=== PATIENT | male | born 1965 | race Caucasian/White ===

== ENCOUNTER → 2016-12-08 | Outpatient (CLI) | payer BC ==
[2016-12-08 11:12] LABS: ALT 40 U/L (21-72); AST 18 U/L (17-59); Cholesterol 129 mg/dL (<200); HDL Cholesterol 42 mg/dL (40-60)
== END | disposition home or self-care (01) ==
LOC: LABWHC1 10:31
PROVIDERS: ATTEND Internal Medicine Cardiovascular Disease
DX: E78.2 Mixed hyperlipidemia (principal)
CPT/HCPCS: 36415; 80061; 84450; 84460

== ENCOUNTER → 2017-05-03 | Outpatient (CLI) | payer BC ==
[2017-05-03 17:49] LABS: HCT 44.6 % (39.0-53.0); HGB 14.2 gm/dL (13.0-17.5); MCH 27.8 pg (25.0-35.0); MCHC 31.9 g/dL (31.0-37.0); MCV 87.1 fL (80.0-100.0); Mean Platelet Volume 8.2; Platelet Count 182 k/uL (150-450); RBC 5.12 m/uL (4.30-5.90); RDW 15.3 % (11.5-15.5); WBC 10.3 k/uL (3.8-10.6)
[2017-05-03 18:05] LABS: Anion Gap 9 mmol/L; Blood Urea Nitrogen 19 mg/dL (9-20); Calcium 9.6 mg/dL (8.4-10.2); Carbon Dioxide 31 mmol/L (22-30); Chloride 103 mmol/L (98-107); Glucose 94 mg/dL (74-99); Potassium 4.3 mmol/L (3.5-5.1); Sodium 143 mmol/L (137-145)
== END | disposition home or self-care (01) ==
LOC: LABWHC1 16:35
PROVIDERS: ATTEND Internal Medicine Cardiovascular Disease
DX: R60.0 Localized edema (principal)
CPT/HCPCS: 36415; 80048; 83880; 84443; 85027

== ENCOUNTER → 2019-03-29 | Outpatient (CLI) | payer BC ==
[2019-03-29 17:25] LABS: Chol/HDL Ratio 2.41; LDL Cholesterol,Calculated 56.6 mg/dL (0.0-131.0); VLDL Calculation 15.4 mg/dL (5.00-40.00)
== END | disposition home or self-care (01) ==
LOC: LABWHC1 09:21
PROVIDERS: ATTEND Internal Medicine Cardiovascular Disease
DX: E78.2 Mixed hyperlipidemia (principal)
CPT/HCPCS: 36415; 80061; 84450; 84460

== ENCOUNTER → 2020-01-28 | Outpatient (CLI) | payer BC ==
[2020-01-28 22:41] LABS: Chol/HDL Ratio 3.05; LDL Cholesterol,Calculated 72.8 mg/dL (0.0-131.0); VLDL Calculation 17.2 mg/dL (5.00-40.00)
== END | disposition home or self-care (01) ==
LOC: LABWHC1 08:19
PROVIDERS: ATTEND Internal Medicine Cardiovascular Disease
DX: E78.2 Mixed hyperlipidemia (principal)
CPT/HCPCS: 36415; 80061; 84450; 84460

== ENCOUNTER → 2021-01-15 | Outpatient (CLI) | payer BC ==
[2021-01-15 12:57] LABS: Chol/HDL Ratio 2.81 Ratio; HDL Cholesterol 46.7 mg/dL (40.00-60.00); LDL Cholesterol,Calculated 71.5 mg/dL (0.0-131.0); Triglycerides 64.2 mg/dL (0.00-149.00); VLDL Calculation 12.84 mg/dL (5.00-40.00)
== END | disposition home or self-care (01) ==
LOC: LABWHC1 08:29
PROVIDERS: ATTEND Internal Medicine Cardiovascular Disease
DX: E78.2 Mixed hyperlipidemia (principal)
CPT/HCPCS: 36415; 80061; 84450; 84460

== ENCOUNTER → 2021-11-02 | Outpatient (CLI) | payer BC ==
[2021-11-02 19:44] LABS: HCT 43.1 % (39.6-50.0); HGB 14.2 g/dL (13.0-17.0); MCHC 32.9 g/dL (32.0-37.0); Mean Platelet Volume 11.4 fL (9.5-12.2); NRBC Per 100 WBC 0 /100 WBCS (0.0-0.0); Platelet Count 185 X 10*3/uL (140-440); RDW 13.6 % (11.5-14.5); WBC 8.24 X 10*3/uL (4.50-10.00)
[2021-11-02 23:12] LABS: African American GFR (CKD) 108.3 (60.0-200.0); Albumin 4.7 g/dL (3.8-4.9); Albumin/Globulin Ratio 2.57 (1.60-3.17); Anion Gap 13.5 mmol/L (10.00-18.00); BUN/Creat Ratio 17.94 Ratio (12.00-20.00); Blood Urea Nitrogen 16.2 mg/dL (9.0-27.0); Calcium 9.7 mg/dL (8.7-10.3); Carbon Dioxide 23.6 mmol/L (20.0-27.5); Follicle Stimulating Hormone 25.1 mIU/mL; Globulin 1.8 g/dL (1.6-3.3); Luteinizing Hormone 20.6 mIU/mL; Non-African American GFR(CKD) 93.4 (60.0-200.0); Potassium 3.9 mmol/L (3.5-5.5); Prolactin 4.7 ng/mL (2.100-17.700); Prostate Specific Antigen 0.1 ng/mL (0.00-3.50); Total Bilirubin 1.2 mg/dL (0.30-1.20); Total Protein 6.5 g/dL (6.2-8.2)
[2021-11-03 06:04] LABS: Testosterone 30.7 ng/mL (86.98-780.10)
== END | disposition home or self-care (01) ==
LOC: LABWHC1 12:17
PROVIDERS: ATTEND Internal Medicine Endocrinology, Diabetes & Metabolism
DX: E29.1 Testicular hypofunction (principal)
CPT/HCPCS: 36415; 80053; 82024; 82533; 83001; 83002; 84146; 84153; 84403; 85027

== ENCOUNTER → 2022-01-05 | Outpatient (CLI) | payer BC ==
[2022-01-05 11:13] LABS: ALT 19 U/L (10-49); AST 17 U/L (14-35); Chol/HDL Ratio 3.05 Ratio; LDL Cholesterol,Calculated 65.6 mg/dL (0.0-131.0); VLDL Calculation 12.36 mg/dL (5.00-40.00)
== END | disposition home or self-care (01) ==
LOC: LABWHC1 08:05
PROVIDERS: ATTEND Internal Medicine Cardiovascular Disease
DX: E78.2 Mixed hyperlipidemia (principal)
CPT/HCPCS: 36415; 80061; 84450; 84460

== ENCOUNTER → 2022-01-11 | Outpatient (CLI) | payer BC ==
[2022-01-11 11:12] LABS: HCT 49.4 % (39.6-50.0); HGB 16.5 g/dL (13.0-17.0); MCH 30.1 pg (27.0-32.0); MCHC 33.4 g/dL (32.0-37.0); MCV 90.1 fL (80.0-97.0); Mean Platelet Volume 10.6 fL (9.5-12.2); NRBC Per 100 WBC 0 /100 WBCS (0.0-0.0); Platelet Count 195 X 10*3/uL (140-440); RBC 5.48 X 10*6/uL (4.40-5.60); RDW 13.5 % (11.5-14.5); WBC 7.81 X 10*3/uL (4.50-10.00)
[2022-01-11 11:14] LABS: African American GFR (CKD) 109.6 (60.0-200.0); Albumin 4.5 g/dL (3.8-4.9); Albumin/Globulin Ratio 2.45 (1.60-3.17); Anion Gap 10.9 mmol/L (10.00-18.00); BUN/Creat Ratio 18.03 Ratio (12.00-20.00); Blood Urea Nitrogen 15.9 mg/dL (9.0-27.0); Calcium 9.3 mg/dL (8.7-10.3); Carbon Dioxide 26.2 mmol/L (20.0-27.5); Follicle Stimulating Hormone 5.4 mIU/mL; Globulin 1.8 g/dL (1.6-3.3); Luteinizing Hormone 9.6 mIU/mL; Non-African American GFR(CKD) 94.6 (60.0-200.0); Potassium 4.9 mmol/L (3.5-5.5); Prolactin 12.9 ng/mL (2.100-17.700); Total Bilirubin 1.2 mg/dL (0.30-1.20); Total Protein 6.4 g/dL (6.2-8.2)
== END | disposition home or self-care (01) ==
LOC: LABWHC1 07:40
PROVIDERS: ATTEND Internal Medicine Endocrinology, Diabetes & Metabolism
DX: E29.1 Testicular hypofunction (principal)
CPT/HCPCS: 36415; 80053; 82024; 82533; 83001; 83002; 84146; 84153; 84403; 85027

== ENCOUNTER → 2022-05-01 | Outpatient (CLI) | payer BC ==
[2022-05-01 14:58] LABS: HCT 53.7 % (39.6-50.0); HGB 17.6 g/dL (13.0-17.0); MCHC 32.8 g/dL (32.0-37.0); MCV 88.6 fL (80.0-97.0); Mean Platelet Volume 10.7 fL (9.5-12.2); NRBC Per 100 WBC 0 /100 WBCS (0.0-0.0); Platelet Count 178 X 10*3/uL (140-440); Prostate Specific Antigen 1.5 ng/mL (0.00-3.50); RBC 6.06 X 10*6/uL (4.40-5.60); RDW 14.6 % (11.5-14.5)
== END ==
LOC: LABWHC1 08:23
PROVIDERS: ATTEND Internal Medicine Endocrinology, Diabetes & Metabolism
DX: E29.1 Testicular hypofunction (principal)
CPT/HCPCS: 36415; 84153; 84403; 85027

== ENCOUNTER → 2022-09-21 | Outpatient (CLI) | payer BC ==
[2022-09-21 20:36] LABS: HCT 52.9 % (39.6-50.0); HGB 17.8 d/dL (12.0-15.0); MCH 30.6 pg (27.0-32.0); MCHC 33.6 d/dL (32.0-37.0); MCV 90.9 FL (80.0-97.0); NRBC Per 100 WBC 0 X 10*3/uL (0.00-0.01); Platelet Count 162 X 10*3/uL (140-440); RBC 5.82 X 10*6/uL (4.40-5.60); RDW 13.8 % (11.5-14.5); WBC 7.44 X 10*3/uL (4.50-10.00)
== END | disposition home or self-care (01) ==
LOC: LABWHC1 07:58
PROVIDERS: ATTEND Internal Medicine Endocrinology, Diabetes & Metabolism
DX: E29.1 Testicular hypofunction (principal)
CPT/HCPCS: 36415; 84153; 84403; 85027

== ENCOUNTER → 2022-11-10 | Outpatient (CLI) | payer BC ==
[2022-11-10 15:45] LABS: Chol/HDL Ratio 4.24 Ratio; LDL Cholesterol,Calculated 94.3 mg/dL (0.0-131.0); VLDL Calculation 18.82 mg/dL (5.00-40.00)
[2022-11-10 15:48] LABS: ALT 28 U/L (10-49); AST 24 U/L (14-35); Albumin 4.5 d/dL (3.8-4.9); Albumin/Globulin Ratio 2.25 Ratio (1.60-3.17); Alkaline Phosphatase 89 U/L (41-126); BUN/Creat Ratio 17.12 Ratio (12.00-20.00); Blood Urea Nitrogen 13.7 mg/dL (9.0-27.0); Calcium 9.5 mg/dL (8.7-10.3); Carbon Dioxide 23.3 mmol/L (21.6-31.8); Chloride 106 mmol/L (96-109); Glucose 87 mg/dL (70-110); Potassium 4.4 mmol/L (3.5-5.5); Sodium 141 mmol/L (135-145); Total Bilirubin 1.7 mg/dL (0.3-1.2); Total Protein 6.5 d/dL (6.2-8.2)
== END | disposition home or self-care (01) ==
LOC: LABWHC1 10:05
PROVIDERS: ATTEND Internal Medicine Cardiovascular Disease
DX: E78.2 Mixed hyperlipidemia (principal); E55.9 Vitamin D deficiency, unspecified; R73.09 Other abnormal glucose
CPT/HCPCS: 36415; 80053; 80061; 82306; 83036

== ENCOUNTER → 2023-01-18 | Outpatient (CLI) | payer BC ==
[2023-01-18 16:44] LABS: Prostate Specific Antigen 0.83 ng/mL (0.000-3.500)
[2023-01-18 17:13] LABS: HCT 53.6 % (39.6-50.0); HGB 18.4 d/dL (13.0-17.0); MCH 30.7 pg (27.0-32.0); MCHC 34.3 d/dL (32.0-37.0); MCV 89.3 FL (80.0-97.0); Mean Platelet Volume 10.7 FL (9.5-12.2); NRBC Per 100 WBC 0 X 10*3/uL (0.00-0.01); Platelet Count 178 X 10*3/uL (140-440); RDW 13.4 % (11.5-14.5); WBC 8.54 X 10*3/uL (4.50-10.00)
== END | disposition home or self-care (01) ==
LOC: LABWHC1 11:58
PROVIDERS: ATTEND Internal Medicine Endocrinology, Diabetes & Metabolism
DX: E29.1 Testicular hypofunction (principal)
CPT/HCPCS: 36415; 84153; 84403; 85027

== ENCOUNTER 2023-02-27 14:28 | Inpatient (IN) | payer BC ==
[2023-02-27] MEDS ORDERED: HEPARIN SODIUM 1,000 UN/ML (10ML VL) IV ONE (14:41)
[2023-02-27] MEDS ORDERED: HEPARIN SODIUM 1,000 UN/ML (10ML VL) IV PRN (14:41)
[2023-02-27] MEDS ORDERED: HYDROmorphone 0.5 MG/0.5 ML SYRINGE IVP PRN (15:01)
[2023-02-27] MEDS ORDERED: NALOXONE 0.4 MG/ML 1 ML VIAL IV PRN (15:04)
[2023-02-27] MEDS ORDERED: ONDANSETRON 4 MG/2 ML VIAL IVP PRN (15:04)
--- NOTE | 2023-02-27 15:04 | ED ---
Lower Extremity Injury HPI - General Chief Complaint: Extremity Injury, Lower Stated Complaint: L Leg Blood Clot, sent by Dr. Sotomayor(cardio) Time Seen by Provider: 02/27/23 14:40 Source: patient, RN notes reviewed Mode of arrival: ambulatory Limitations: no limitations - History of Present Illness Initial Comments: 57-year-old male presents emergency Department with chief complaint of left leg DVT. Patient states she's been having pain of his left leg he went for ultrasound yesterday and outside facility and found to have to DVTs noted. Patient states been having extreme pain. He denies any chest pain or shortness breath he does have significant cardiac history for LA with 2 stent placements. Patient states he contacted his soaking room operator Dr. Zaragoza advised him come emergency department to be admitted for heparin, Coumadin. He was prescribed Eliquis yesterday in which he took initial dose of Eliquis but states his prescription was over $1000 and could not afford the cost medication. He has no history of blood clots. He is a daily smoker. - Related Data Allergies Allergy/AdvReac Type Severity Reaction Status Date / Time No Known Allergies Allergy Verified 02/27/23 14:36 Review of Systems ROS Statement: Those systems with pertinent positive or pertinent negative responses have been documented in the HPI. ROS Other: All systems not noted in ROS Statement are negative. Past Medical History Past Medical History: Myocardial Infarction (LA) Past Surgical History: Heart Catheterization With Stent Additional Past Surgical History / Comment(s): two stents, Past Psychological History: No Psychological Hx Reported Smoking Status: Current every day smoker Past Alcohol Use History: None Reported Past Drug Use History: None Reported General Exam Limitations: no limitations General appearance: alert, in no apparent distress Head exam: Present: atraumatic, normocephalic, normal inspection Neck exam: Present: normal inspection. Absent: tenderness, meningismus, lymphadenopathy Respiratory exam: Present: normal lung sounds bilaterally. Absent: respiratory distress, wheezes, rales, rhonchi, stridor Cardiovascular Exam: Present: regular rate, normal rhythm, normal heart sounds. Absent: systolic murmur, diastolic murmur, rubs, gallop, clicks Extremities exam: Present: calf tenderness, other (Left leg tenderness with palpation, mild swelling) Course Vital Signs 02/27/23 14:30 Temperature 98.2 F Pulse Rate 78 Respiratory 18 Rate Blood Pressure 169/67 O2 Sat by Pulse 98 Oximetry Medical Decision Making - Medical Decision Making Was pt. sent in by a medical professional or institution (DARLENE Warner, RATING OFFICER, urgent care, hospital, or retirement...) When possible be specific @ -Bottom Liner Did you speak to anyone other than the patient for history (EMS, parent, family, police, friend...)? What history was obtained from this source @ -No Did you review nursing and triage notes (agree or disagree)? Why? @ -I reviewed and agree with nursing and triage notes Were old charts reviewed (outside hosp., previous admission, EMS record, old EKG, old radiological studies, urgent care reports/EKG's, retirement records)? Report findings @ -Reviewed outpatient ultrasound report Differential Diagnosis (chest pain, altered mental status, abdominal pain women, abdominal pain men, vaginal bleeding, weakness, fever, dyspnea, syncope, headache, dizziness, GI bleed, back pain, seizure, CVA, palpatations, mental health, musculoskeletal)? @ -[DVT, superficial thrombophlebitis EKG interpreted by me (3pts min.). @ -None X-rays interpreted by me (1pt min.). @ -None done CT interpreted by me (1pt min.). @ -None done U/S interpreted by me (1pt. min.). @ -None done What testing was considered but not performed or refused? (CT, X-rays, U/S, labs)? Why? @ -None What meds were considered but not given or refused? Why? @ -None Did you discuss the management of the patient with other professionals (professionals i.e. DARLENE Warner, RATING OFFICER, lab, RT, psych nurse, social psychologist, diagnostic sales specialist, teacher, military police officer, case assembler)? Give summary @ - sheet for admission secondary to left leg DVT Was smoking cessation discussed for >3mins.? @ -No Was critical care preformed (if so, how long)? @ -No Were there social determinants of health that impacted care today? How? (Homelessness, low income, unemployed, alcoholism, drug addiction, transportation, low edu. Level, literacy, decrease access to med. care, custodial, rehab)? @ -No Was there de-escalation of care discussed even if they declined (Discuss DNR or withdrawal of care, Hospice)? DNR status @ -No What co-morbidities impacted this encounter? (DM, HTN, Smoking, COPD, CAD, Cancer, CVA, ARF, Chemo, Hep., AIDS, mental health diagnosis, sleep apnea, mor bid obesity)? @ -CAD Was patient admitted / discharged? Hospital course, mention meds given and route, prescriptions, significant lab abnormalities, going to OR and other pertinent info. @ -Admitted patient was started on high-dose heparin patient has left leg DVT. Obtain outside records, case discussed with Dr. hill for admission. Undiagnosed new problem with uncertain prognosis? @ -No Drug Therapy requiring intensive monitoring for toxicity (Heparin, Nitro, Insulin, Cardizem)? @ -No Were any procedures done? @ -No Diagnosis/symptom? @ -DVT left leg Acute, or Chronic, or Acute on Chronic? @ -Acute Uncomplicated (without systemic symptoms) or Complicated (systemic symptoms)? @ -Uncomplicated Side effects of treatment? @ -No Exacerbation, Progression, or Severe Exacerbation? @ -No Poses a threat to life or bodily function? How? (Chest pain, USA, LA, pneumonia, PE, COPD, DKA, ARF, appy, cholecystitis, CVA, Diverticulitis, Homicidal, Suicidal, threat to staff... and all critical care pts) @ -No Disposition Clinical Impression: Left leg DVT Disposition: ADMITTED IP TO THIS HOSP Condition: Fair Referrals: [facility] [Primary Care Provider] - 1-2 days Time of Disposition: 15:04
[2023-02-27 15:33] LABS: Basophils % (A) 1 %; Eosinophils # (A) 0.3 k/uL (0-0.7); Eosinophils % (A) 3 %; HCT 49.3 % (39.0-53.0); Lymphocytes # (A) 2.2 k/uL (1.0-4.8); Lymphocytes % (A) 23 %; MCH 30.9 pg (25.0-35.0); MCHC 34.4 g/dL (31.0-37.0); MCV 89.6 fL (80.0-100.0); Monocytes # (A) 0.7 k/uL (0-1.0); Monocytes % (A) 8 %; Neutrophils # (A) 6.1 k/uL (1.3-7.7); Neutrophils % (A) 64 %; Platelet Count 134 k/uL (150-450); RDW 12.9 % (11.5-15.5); WBC 9.5 k/uL (3.8-10.6)
[2023-02-27] MEDS: HEPARIN SOD,PORK IN 0.45% NACL 25,000 UNIT in 0.45% NACL 1 250ML.BAG IV SCH (15:35)
[2023-02-27 15:46] LABS: ALT 24 U/L (4-49); AST 19 U/L (17-59); African American GFR (CKD) >90 (>60 ml/min/1.73 sqM); Albumin 3.9 g/dL (3.5-5.0); Alkaline Phosphatase 71 U/L (38-126); Anion Gap 7 mmol/L; Blood Urea Nitrogen 20 mg/dL (9-20); Calcium 9.3 mg/dL (8.4-10.2); Carbon Dioxide 26 mmol/L (22-30); Chloride 109 mmol/L (98-107); Glucose 96 mg/dL (74-99); Non-African American GFR(CKD) >90 (>60 ml/min/1.73 sqM); Potassium 3.8 mmol/L (3.5-5.1); Sodium 142 mmol/L (137-145); Total Bilirubin 1.4 mg/dL (0.2-1.3); Total Protein 6.2 g/dL (6.3-8.2)
[2023-02-27 15:51] LABS: Partial Thromboplastin Time 27.7 sec (22.0-30.0); Prothrombin Time 11.3 sec (10.0-12.5)
--- NOTE | 2023-02-27 16:33 | US ---
EXAMINATION TYPE: US venous doppler duplex LE DATE OF EXAM: 02/27/2023 4:12 PM COMPARISON: NONE CLINICAL INDICATION: Male, 57 years old with history of leg pain; Positive DVT Left leg Bear 26 m ile- given script for 2 days worth of thinners SIDE PERFORMED: Bilateral TECHNIQUE: The lower extremity deep venous system is examined utilizing real time linear array sonog armando with graded compression, doppler sonography and color-flow sonography. VESSELS IMAGED: Common Femoral Vein WNL Deep Femoral Vein WNL Greater Saphenous Vein *WNL PROXIMALLY Femoral Vein WNL Popliteal Vein within normal limits on the right, there is echogenic material with loss of color flow and noncompressibility of the left popliteal vein, consistent with DVT. Small Saphenous Vein *WNL Proximal Calf Veins WNL (* superficial vessels) Right Leg: Negative for DVT Left Leg: Positive for DVT IMPRESSION: * Positive for DVT in the left popliteal vein. * No evidence of DVT in the right lower extremity.
[2023-02-27] MEDS ORDERED: WARFARIN 5 MG TAB PO ONE (18:00)
[2023-02-27] MEDS: HYDROcodone/APAP 5-325MG 1 EACH TAB PO PRN (20:05)
--- NOTE | 2023-02-27 21:11 | P.HPIM ---
History of Present Illness This is a pleasant 57 years old male with past medical history of coronary artery disease status post stent placement, he is every day smoker. Patient started having left leg pain and swelling and warmth about 2 days ago, he wants to see his PCP who sendthim to [facility], ultrasound found to close in his left leg, he was prescribed Eliquis and sent home however his co- pay for Eliquis was $1000 which she can't afford so he wants to his practice professional Dr. Sotomayor who referred him to this facility emergency room Patient was sent from his practice professional office Dr. Sotomayor for his deep venous thrombosis treatment, patient cannot afford Eliquis. Patient was denying any chest pain or dyspnea. Vitals are stable and patient is saturating 98% on room air. Labs reviewed showing unremarkable CBC, BMP, liver enzymes. Patient was started on heparin drip and emergency room We'll add warfarin Review of Systems Review of systems CONSTITUTIONAL: No fever, no malaise, no fatigue. HEENT: No recent visual problems or hearing problems. Denied any sore throat. CARDIOVASCULAR: No orthopnea, PND, no palpitations, no syncope. PULMONARY: No shortness of breath, no cough, no hemoptysis. GASTROINTESTINAL: No diarrhea, no nausea, no vomiting, no abdominal pain. Normoactive bowel sounds. NEUROLOGICAL: No headaches, no weakness, no numbness. HEMATOLOGICAL: Denies any bleeding or petechiae. GENITOURINARY: Denies any burning micturition, frequency, or urgency. MUSCULOSKELETAL/RHEUMATOLOGICAL: Denies any joint pain, swelling, or any muscle pain. ENDOCRINE: Denies any polyuria or polydipsia. Past Medical History Past Medical History: Myocardial Infarction (NM) Past Surgical History: Heart Catheterization With Stent Additional Past Surgical History / Comment(s): two stents, Past Psychological History: No Psychological Hx Reported Smoking Status: Current every day smoker Past Alcohol Use History: None Reported Past Drug Use History: None Reported Medications and Allergies Home Medications Medication Instructions Recorded Confirmed Type Aspirin [Duplin Aspirin EC] 81 mg PO DAILY 02/27/23 02/27/23 History Atorvastatin [Lipitor] 40 mg PO HS 02/27/23 02/27/23 History Allergies Allergy/AdvReac Type Severity Reaction Status Date / Time No Known Allergies Allergy Verified 02/27/23 15:57 Physical Exam Vitals: Vital Signs Temp Pulse Resp BP Pulse Ox 02/27/23 14:30 98.2 F 78 18 169/67 98 Intake and Output 02/27/23 02/27/23 02/27/23 06:59 14:59 22:59 Other: Weight 99.337 kg GENERAL: The patient is alert and oriented x3, not in any acute distress. Well developed, well nourished. HEENT: Pupils are round and equally reacting to light. EOMI. No scleral icterus. No conjunctival pallor. Normocephalic, atraumatic. No pharyngeal erythema. No thyromegaly. CARDIOVASCULAR: S1 and S2 present. No murmurs, rubs, or gallops. PULMONARY: Chest is clear to auscultation, no wheezing , no crackles. ABDOMEN: Soft, nontender, nondistended, normoactive bowel sounds. No palpable organomegaly. MUSCULOSKELETAL: No joint swelling or deformity. -EXTREMITIES: No cyanosis, clubbing, or pedal edema. Left leg swelling and red and tender NEUROLOGICAL: Gross neurological examination did not reveal any focal deficits. SKIN: No rashes. no petechiae. Results CBC & Chem 7: 02/27/23 15:07 02/27/23 15:07 Labs: Abnormal Lab Results - Last 24 Hours (Table) 02/27/23 Range/Units 15:07 Plt Count 134 L (150-450) k/uL Assessment and Plan Assessment: Acute DVT of thrombosis requiring anticoagulation History of coronary artery disease Nicotine dependence Hypertension, new onset Plan: Continue with heparin drip Continue with Coumadin pharmacy to dose Monitor INR and hemoglobin Start [facility] for blood pressure control Labs and medication were reviewed.. Continue same treatment. Continue with symptomatic treatment. Resume home medication. Monitor labs and vitals. DVT and GI prophylaxis. Further recommendations as per clinical course of the patient DVT prophylaxis: heparin GI Prophylaxis: Pepcid
[2023-02-27] MEDS: amLODIPine 5 MG TAB PO SCH (21:41)
[2023-02-28] MEDS: HEPARIN SOD,PORK IN 0.45% NACL 25,000 UNIT in 0.45% NACL 1 250ML.BAG IV SCH ×2 (05:55→20:59)
[2023-02-28] MEDS: ACETAMINOPHEN TAB 325 MG TAB PO PRN ×2 (06:04→12:52)
[2023-02-28 07:21] LABS: INR 1.1 (<1.2); Prothrombin Time 11.9 sec (10.0-12.5)
[2023-02-28 08:36] LABS: Partial Thromboplastin Time 52.5 sec (22.0-30.0)
[2023-02-28] MEDS: ASPIRIN 81 MG PO SCH (08:49)
[2023-02-28] MEDS: amLODIPine 5 MG TAB PO SCH (08:49)
[2023-02-28 15:16] LABS: Basophils # (A) 0.06 X 10*3/uL (0.00-0.10); Basophils % (A) 0.6 %; Eosinophils # (A) 0.33 X 10*3/uL (0.04-0.35); Eosinophils % (A) 3.2 %; HCT 50.2 % (39.6-50.0); Lymphocytes # (A) 2.27 X 10*3/uL (0.90-5.00); MCH 30.4 pg (27.0-32.0); MCHC 33.9 g/dL (32.0-37.0); MCV 89.6 FL (80.0-97.0); Mean Platelet Volume 10.9 FL (9.5-12.2); Monocytes # (A) 0.91 X 10*3/uL (0.20-1.00); Monocytes % (A) 8.8 %; NRBC Per 100 WBC 0 X 10*3/uL (0.00-0.01); Platelet Count 148 X 10*3/uL (140-440); RDW 13.2 % (11.5-14.5); WBC 10.31 X 10*3/uL (4.50-10.00)
[2023-02-28] MEDS: HYDROcodone/APAP 5-325MG 1 EACH TAB PO PRN (17:21)
[2023-02-28] MEDS ORDERED: WARFARIN 5 MG TAB PO ONE (18:00)
--- NOTE | 2023-03-01 06:23 | P.PN ---
Subjective This is a pleasant 57 years old male with past medical history of coronary artery disease status post stent placement, he is every day smoker. Patient started having left leg pain and swelling and warmth about 2 days ago, he wants to see his PCP who sendthim to [facility], ultrasound found to close in his left leg, he was prescribed Eliquis and sent home however his co- pay for Eliquis was $1000 which she can't afford so he wants to his biztalk administrator Dr. Sotomayor who referred him to this facility emergency room Patient was sent from his biztalk administrator office Dr. Sotomayor for his deep venous thrombosis treatment, patient cannot afford Eliquis. Patient was denying any chest pain or dyspnea. Vitals are stable and patient is saturating 98% on room air. Labs reviewed showing unremarkable CBC, BMP, liver enzymes. Patient was started on heparin drip and emergency room We'll add warfarin 02/28/2023 patient with no chest pain or dyspnea, his left leg pain is improving slowly and gradually. No new complaints. No evidence of bleeding. Patient remains on heparin drip bridging while receiving Coumadin pending INR to be therapeutic PT/OT recommended home Objective - Vital Signs Vital signs: Vital Signs Temp 98.1 F 02/28/23 13:20 Pulse 75 02/28/23 13:20 Resp 16 02/28/23 13:20 BP 130/69 02/28/23 13:20 Pulse Ox 97 02/28/23 13:20 FiO2 Intake & Output 02/27/23 02/28/23 02/28/23 18:59 06:59 18:59 Intake Total 250 200 Output Total 700 Balance -450 200 Weight 99.337 kg 99.337 kg Intake: Intake, IV Titration 250 Amount Heparin Sod,Pork in 0.45% 250 NaCl 25,000 unit In 0.45 % NaCl 1 250ml.bag @ 18 UNITS/KG/HR 17.881 mls/hr IV .[id number] [facility] Rx#: [id number] Oral 200 Output: Urine 700 Other: Voiding Method Toilet Urinal - Exam GENERAL: The patient is alert and oriented x3, not in any acute distress. Well developed, well nourished. HEENT: Pupils are round and equally reacting to light. EOMI. No scleral icterus. No conjunctival pallor. Normocephalic, atraumatic. No pharyngeal erythema. No thyromegaly. CARDIOVASCULAR: S1 and S2 present. No murmurs, rubs, or gallops. PULMONARY: Chest is clear to auscultation, no wheezing , no crackles. ABDOMEN: Soft, nontender, nondistended, normoactive bowel sounds. No palpable organomegaly. MUSCULOSKELETAL: No joint swelling or deformity. -EXTREMITIES: No cyanosis, clubbing, or pedal edema. Improving left leg swelling and tenderness and erythema NEUROLOGICAL: Gross neurological examination did not reveal any focal deficits. SKIN: No rashes. no petechiae. - Labs CBC & Chem 7: 02/28/23 06:16 02/27/23 15:07 Labs: Abnormal Lab Results - Last 24 Hours (Table) 02/27/23 02/27/23 02/27/23 Range/Units 15:07 15:07 20:38 Plt Count 134 L (150-450) k/uL APTT 67.3 H (22.0-30.0) sec Chloride 109 H (98-107) mmol/L Total Bilirubin 1.4 H (0.2-1.3) mg/dL Total Protein 6.2 L (6.3-8.2) g/dL 02/27/23 02/28/23 Range/Units 22:45 06:16 Plt Count (150-450) k/uL APTT 64.9 H 52.5 H (22.0-30.0) sec Chloride (98-107) mmol/L Total Bilirubin (0.2-1.3) mg/dL Total Protein (6.3-8.2) g/dL Assessment and Plan Assessment: Acute DVT of thrombosis requiring anticoagulation History of coronary artery disease Nicotine dependence Hypertension, new onset Plan: Continue with heparin drip Continue with Coumadin pharmacy to dose Monitor INR and hemoglobin Start [facility] for blood pressure control Labs and medication were reviewed.. Continue same treatment. Continue with symptomatic treatment. Resume home medication. Monitor labs and vitals. DVT and GI prophylaxis. Further recommendations as per clinical course of the patient DVT prophylaxis: heparin GI Prophylaxis: Pepcid
[2023-03-01 07:55] LABS: INR 1.1 (<1.2); Partial Thromboplastin Time 59.2 sec (22.0-30.0); Prothrombin Time 11.7 sec (10.0-12.5)
[2023-03-01] MEDS: ASPIRIN 81 MG PO SCH (09:29)
[2023-03-01] MEDS: amLODIPine 5 MG TAB PO SCH (09:29)
[2023-03-01] MEDS: HEPARIN SOD,PORK IN 0.45% NACL 25,000 UNIT in 0.45% NACL 1 250ML.BAG IV SCH (11:04)
--- NOTE | 2023-03-01 11:21 | P.EN ---
Patient has mobility limitation that significantly impairs the ability to participate an MRADLS in the home. Patient is able to safely use a walker and functional mobility deficit can be resolved by the use of a walker. Patient was diagnosed with a left popliteal vein deep vein thrombosis.
[2023-03-01 13:15] LABS: HCT 50.8 % (39.6-50.0); HGB 17.2 g/dL (13.0-17.0); MCH 30.2 pg (27.0-32.0); MCHC 33.9 g/dL (32.0-37.0); MCV 89.1 FL (80.0-97.0); Mean Platelet Volume 10.4 FL (9.5-12.2); NRBC Per 100 WBC 0 X 10*3/uL (0.00-0.01); Platelet Count 149 X 10*3/uL (140-440); RDW 13.1 % (11.5-14.5)
[2023-03-01] MEDS ORDERED: WARFARIN 10 MG TAB PO ONE (18:00)
[2023-03-01] MEDS: ATORVASTATIN 40 MG TAB PO SCH (19:48)
[2023-03-01] MEDS: NICOTINE 7MG/24HR PATCH TRANSDERM SCH (19:48)
--- NOTE | 2023-03-01 22:30 | P.PN ---
Subjective This is a pleasant 57 years old male with past medical history of coronary artery disease status post stent placement, he is every day smoker. Patient started having left leg pain and swelling and warmth about 2 days ago, he wants to see his PCP who sendthim to [facility], ultrasound found to close in his left leg, he was prescribed Eliquis and sent home however his co- pay for Eliquis was $1000 which she can't afford so he wants to his operations assistant Dr. Sotomayor who referred him to this facility emergency room Patient was sent from his operations assistant office Dr. Sotomayor for his deep venous thrombosis treatment, patient cannot afford Eliquis. Patient was denying any chest pain or dyspnea. Vitals are stable and patient is saturating 98% on room air. Labs reviewed showing unremarkable CBC, BMP, liver enzymes. Patient was started on heparin drip and emergency room We'll add warfarin 02/28/2023 patient with no chest pain or dyspnea, his left leg pain is improving slowly and gradually. No new complaints. No evidence of bleeding. Patient remains on heparin drip bridging while receiving Coumadin pending INR to be therapeutic PT/OT recommended home 03/01/2023 Patient diagnosed with left leg DVT Started on Coumadin, INR 1.1, continue with the impression pain is better in the left leg but not completely resolved, on [place]. Swelling and redness improved Objective - Vital Signs Vital signs: Vital Signs Temp 98.3 F 03/01/23 07:15 Pulse 79 03/01/23 07:15 Resp 18 03/01/23 07:15 BP 137/69 03/01/23 07:15 Pulse Ox 95 03/01/23 07:15 FiO2 Intake & Output 02/28/23 03/01/23 03/01/23 18:59 06:59 18:59 Intake Total 860 850 420 Output Total 900 400 Balance 860 -50 20 Intake: Intake, IV Titration 250 Amount Heparin Sod,Pork in 0.45% 250 NaCl 25,000 unit In 0.45 % NaCl 1 250ml.bag @ 18 UNITS/KG/HR 17.881 mls/hr IV .[id number] [facility] Rx#: [id number] Oral 860 600 420 Output: Urine 900 400 Other: Voiding Method Toilet Urinal # Voids 2 - Exam GENERAL: The patient is alert and oriented x3, not in any acute distress. Well developed, well nourished. HEENT: Pupils are round and equally reacting to light. EOMI. No scleral icterus. No conjunctival pallor. Normocephalic, atraumatic. No pharyngeal erythema. No thyromegaly. CARDIOVASCULAR: S1 and S2 present. No murmurs, rubs, or gallops. PULMONARY: Chest is clear to auscultation, no wheezing , no crackles. ABDOMEN: Soft, nontender, nondistended, normoactive bowel sounds. No palpable organomegaly. MUSCULOSKELETAL: No joint swelling or deformity. -EXTREMITIES: No cyanosis, clubbing, or pedal edema. Improving left leg swelling and tenderness and erythema NEUROLOGICAL: Gross neurological examination did not reveal any focal deficits. SKIN: No rashes. no petechiae. - Labs CBC & Chem 7: 03/01/23 06:28 02/27/23 15:07 Labs: Abnormal Lab Results - Last 24 Hours (Table) 02/28/23 03/01/23 Range/Units 06:16 06:18 WBC 10.31 H (4.50-10.00) X 10*3/uL Hct 50.2 H (39.6-50.0) % APTT 59.2 H (22.0-30.0) sec Assessment and Plan Assessment: Acute DVT of thrombosis requiring anticoagulation History of coronary artery disease Nicotine dependence Hypertension, new onset Plan: Continue with heparin drip Continue with Coumadin pharmacy to dose Monitor INR and hemoglobin Start [facility] for blood pressure control Labs and medication were reviewed.. Continue same treatment. Continue with symptomatic treatment. Resume home medication. Monitor labs and vitals. DVT and GI prophylaxis. Further recommendations as per clinical course of the patient DVT prophylaxis: heparin GI Prophylaxis: Pepcid
[2023-03-02] MEDS: HEPARIN SOD,PORK IN 0.45% NACL 25,000 UNIT in 0.45% NACL 1 250ML.BAG IV SCH (00:43)
[2023-03-02] MEDS: ACETAMINOPHEN TAB 325 MG TAB PO PRN ×2 (02:28→19:45)
[2023-03-02 07:26] LABS: INR 1.3 (<1.2); Prothrombin Time 13.6 sec (10.0-12.5)
[2023-03-02] MEDS: NICOTINE 7MG/24HR PATCH TRANSDERM SCH (08:41)
[2023-03-02] MEDS: amLODIPine 5 MG TAB PO SCH (08:41)
[2023-03-02] MEDS: ASPIRIN 81 MG PO SCH (08:41)
[2023-03-02] MEDS ORDERED: ENOXAPARIN 100 MG/ML SYRINGE SQ SCH (15:00)
[2023-03-02] MEDS ORDERED: WARFARIN 10 MG TAB PO ONE (18:00)
[2023-03-02] MEDS: ATORVASTATIN 40 MG TAB PO SCH (21:28)
--- NOTE | 2023-03-02 23:17 | P.PN ---
Subjective This is a pleasant 57 years old male with past medical history of coronary artery disease status post stent placement, he is every day smoker. Patient started having left leg pain and swelling and warmth about 2 days ago, he wants to see his PCP who sendthim to [facility], ultrasound found to close in his left leg, he was prescribed Eliquis and sent home however his co- pay for Eliquis was $1000 which she can't afford so he wants to his guest service supervisor Dr. Sotomayor who referred him to this facility emergency room Patient was sent from his guest service supervisor office Dr. Sotomayor for his deep venous thrombosis treatment, patient cannot afford Eliquis. Patient was denying any chest pain or dyspnea. Vitals are stable and patient is saturating 98% on room air. Labs reviewed showing unremarkable CBC, BMP, liver enzymes. Patient was started on heparin drip and emergency room We'll add warfarin 02/28/2023 patient with no chest pain or dyspnea, his left leg pain is improving slowly and gradually. No new complaints. No evidence of bleeding. Patient remains on heparin drip bridging while receiving Coumadin pending INR to be therapeutic PT/OT recommended home 03/01/2023 Patient diagnosed with left leg DVT Started on Coumadin, INR 1.1, continue with the impression pain is better in the left leg but not completely resolved, on [place]. Swelling and redness improved 03/02/2023 Gen. he was doing well He was still complaining of from pain in his left leg, PT/OT to evaluated the patient and recommended rolling walker which is delivered at bedside. His heparin drip was stopped today and switch to Lovenox 100 mg twice a day based on his weight while continued on Coumadin, he'll receive 10 mg last night and tonight, INR this morning is 1.3. Patient was considered for discharge today with his PCP Dr. Avila and I discussed the case with Dr. Avila and he was supposed to go and check his INR with her this coming Sunday on 03/05 However prior to discharge patient noticed to have 2 hematoma spots in his back there for patient was kept for monitoring Hematology consult I had lengthy discussion with the patient and family at bedside about the importance of treatment, INR monitoring and diet, they both verbalized understanding and acceptance Active Medications Generic Name Dose Route Start Last Admin Trade Name Freq PRN Reason Stop Dose Admin Acetaminophen 650 mg 02/27/23:04 03/02/23 19:45 Acetaminophen Tab 325 Mg Tab PO 650 mg Q6HR PRN Administration Mild Pain or Fever > 100.5 Hydrocodone Bitart/Acetaminophen 1 each 02/27/23 15:01 02/28/23 17:21 Hydrocodone/Apap 5-325mg 1 Each Tab PO 1 each Q4HR PRN Administration Pain Amlodipine Besylate 5 mg 02/27/23 21:15 03/02/23 08:41 Amlodipine 5 Mg Tab PO 5 mg DAILY ARTURO Administration Aspirin 81 mg 02/28/23 09:00 03/02/23 08:41 Aspirin 81 Mg PO 81 mg DAILY ARTURO Administration Atorvastatin Calcium 40 mg 03/01/23 21:00 03/02/23 21:28 Atorvastatin 40 Mg Tab PO 40 mg HS ARTURO Administration Enoxaparin Sodium 100 mg 03/03/23 03:00 Enoxaparin 100 Mg/Ml Syringe SQ Q12H ARTURO Hydromorphone HCl 0.5 mg 02/27/23 15:01 Hydromorphone 0.5 Mg/0.5 Ml Syringe IVP Q3HR PRN Pain Miscellaneous Information 1 each 02/27/23 15:45 Warfarin Per Pharmacy MISCELLANE DIRECTED PRN Per Protocol Protocol Naloxone HCl 0.2 mg 02/27/23 15:04 Naloxone 0.4 Mg/Ml 1 Ml Vial IV Q2M PRN Opioid Reversal Nicotine 1 patch 03/01/23 19:00 03/02/23 08:41 Nicotine 7mg/24hr Patch TRANSDERM 1 patch DAILY ARTURO Administration Ondansetron HCl 4 mg 02/27/23 15:04 Ondansetron 4 Mg/2 Ml Vial IVP Q8HR PRN Nausea And Vomiting Objective - Vital Signs Vital signs: Vital Signs Temp 97.6 F 03/02/23 20:00 Pulse 88 03/02/23 20:00 Resp 16 03/02/23 20:00 BP 120/61 03/02/23 20:00 Pulse Ox 96 03/02/23 20:00 FiO2 Intake & Output 03/02/23 03/02/23 03/03/23 06:59 18:59 06:59 Intake Total 843.778 Output Total 700 Balance 143.778 Intake: Intake, IV Titration 243.778 Amount Heparin Sod,Pork in 0.45% 243.778 NaCl 25,000 unit In 0.45 % NaCl 1 250ml.bag @ 18 UNITS/KG/HR 17.881 mls/hr IV .[id number] [facility] Rx#: [id number] Oral 600 Output: Urine 700 Other: Voiding Method Toilet Toilet Urinal Urinal # Voids 2 - Exam GENERAL: The patient is alert and oriented x3, not in any acute distress. Well developed, well nourished. HEENT: Pupils are round and equally reacting to light. EOMI. No scleral icterus. No conjunctival pallor. Normocephalic, atraumatic. No pharyngeal erythema. No thyromegaly. CARDIOVASCULAR: S1 and S2 present. No murmurs, rubs, or gallops. PULMONARY: Chest is clear to auscultation, no wheezing , no crackles. ABDOMEN: Soft, nontender, nondistended, normoactive bowel sounds. No palpable organomegaly. MUSCULOSKELETAL: No joint swelling or deformity. -EXTREMITIES: No cyanosis, clubbing, or pedal edema. Improving left leg swelling and tenderness and erythema NEUROLOGICAL: Gross neurological examination did not reveal any focal deficits. SKIN: No rashes. no petechiae. - Labs CBC & Chem 7: 03/01/23 06:28 02/27/23 15:07 Labs: Abnormal Lab Results - Last 24 Hours (Table) 03/02/23 03/02/23 Range/Units 07:05 07:05 PT 13.6 H (10.0-12.5) sec INR 1.3 H (<1.2) APTT 68.3 H (22.0-30.0) sec Assessment and Plan Assessment: Acute DVT of thrombosis requiring anticoagulation History of coronary artery disease Nicotine dependence Hypertension, new onset Plan: Continue with Lovenox therapeutic dose Continue with Coumadin pharmacy to dose Monitor INR and hemoglobin Hematology consults Monitor the hematoma Start [facility] for blood pressure control Labs and medication were reviewed.. Continue same treatment. Continue with symptomatic treatment. Resume home medication. Monitor labs and vitals. DVT and GI prophylaxis. Further recommendations as per clinical course of the patient DVT prophylaxis: lovenox GI Prophylaxis: Pepcid
[2023-03-03] MEDS: ACETAMINOPHEN TAB 325 MG TAB PO PRN (02:57)
[2023-03-03] MEDS ORDERED: ENOXAPARIN 100 MG/ML SYRINGE SQ SCH (03:00)
[2023-03-03 06:45] LABS: INR 2.2 (<1.2); Prothrombin Time 21.9 sec (10.0-12.5)
[2023-03-03] MEDS: ASPIRIN 81 MG PO SCH (08:24)
[2023-03-03] MEDS: NICOTINE 7MG/24HR PATCH TRANSDERM SCH (08:24)
[2023-03-03] MEDS: amLODIPine 5 MG TAB PO SCH (08:25)
[2023-03-03 09:00] VITALS: BP 128/73
--- NOTE | 2023-03-03 09:31 | P.CONS ---
History of Present Illness - Reason for Consult Consult date: 03/02/23 DVT Requesting physician: Unruly Cordova - Chief Complaint LLE DVT - History of Present Illness Patient is a 57-year-old male with a significant history of coronary artery d isease nicotine dependence. Consult was placed for DVT and anticoagulation recommendations. Patient presented to the emergency room with complaints of left lower extremity pain. Patient reports he was stepping off a ladder and then began to experience sharp pain in the leg, denies any injury. Denies shortness of breath, chest pain and palpitations. Dopplers of bilateral lower extremities revealed DVT of left popliteal vein. Patient was initially started on heparin and then transitioned to Coumadin. However INR was subtherapeutic and Lovenox bridge was started. Patient reports he was started on testosterone replacement approximately 18 months ago and at his last checkup with his endoc rinologist his levels were 1500, last testosterone injection was 2 weeks ago. CBC revealed mildly elevated hemoglobin and hematocrit. Review of Systems 10 point ROS is negative except as stated in the HPI Past Medical History Past Medical History: Myocardial Infarction (PR) Last Myocardial Infarction Date:: 2005 History of Any Multi-Drug Resistant Organisms: None Reported Past Surgical History: Heart Catheterization With Stent Additional Past Surgical History / Comment(s): two stents, Date of Last Stent Placement:: 2005 Past Psychological History: No Psychological Hx Reported Smoking Status: Current every day smoker Past Alcohol Use History: None Reported Past Drug Use History: None Reported Medications and Allergies Home Medications Medication Instructions Recorded Confirmed Type Aspirin [[place] Aspirin EC] 81 mg PO DAILY 02/27/23 02/27/23 History Atorvastatin [Lipitor] 40 mg PO HS 02/27/23 02/27/23 History Acetaminophen Tab [Tylenol] 650 mg PO Q6HR PRN tab 03/02/23 Rx Enoxaparin [Lovenox] 100 mg SQ Q12HR #6 each 03/02/23 Rx HYDROcodone/APAP 5-325MG [[place] 1 each PO Q6HR PRN 3 Days #12 tab 03/02/23 Rx 5-325] Nicotine 7Mg/24Hr Patch [Habitrol] 1 patch TRANSDERM DAILY #5 patch 03/02/23 Rx Warfarin [Coumadin] 1 mg PO DAILY #30 tablet 03/02/23 Rx Warfarin [Coumadin] 7.5 mg PO DAILY #30 tab 03/02/23 Rx amLODIPine [Norvasc] 5 mg PO DAILY #30 tab 03/02/23 Rx Allergies Allergy/AdvReac Type Severity Reaction Status Date / Time No Known Allergies Allergy Verified 02/27/23 15:57 Physical Exam Vitals: Vital Signs Temp Pulse Pulse Resp BP Pulse Ox 03/02/23 13:53 98.1 F 96 70 20 150/71 03/02/23 11:50 98.5 F 73 18 147/83 95 03/02/23 07:15 98.1 F 70 18 124/71 96 03/02/23 07:10 98.5 F 65 18 119/67 95 03/02/23 02:00 98.3 F 72 16 113/64 95 03/01/23 20:10 16 03/01/23 20:00 98.5 F 75 16 121/74 95 Intake and Output 03/02/23 03/02/23 03/02/23 06:59 14:59 22:59 Intake Total 843.778 Output Total 700 Balance 143.778 Intake: Intake, IV Titration 243.778 Amount Heparin Sod,Pork in 0.45% 243.778 NaCl 25,000 unit In 0.45 % NaCl 1 250ml.bag @ 18 UNITS/KG/HR 17.881 mls/hr IV .[id number] [facility] Rx#: [id number] Oral 600 Output: Urine 700 Other: Voiding Method Toilet Urinal # Voids 2 - Constitutional General appearance: average body habitus, no acute distress - EENT Eyes: anicteric sclerae, EOMI ENT: hearing grossly normal - Respiratory Respiratory: bilateral: CTA - Cardiovascular Rhythm: regular Heart sounds: normal: S1, S2 leg Peripheral Edema: left: 1+ - Integumentary Integumentary: no cellulitis, no cyanotic - Neurologic grossly intact - Musculoskeletal left calf tenderness - Psychiatric Psychiatric: A&O x's 3 Results CBC & Chem 7: 03/01/23 06:28 02/27/23 15:07 Labs: Abnormal Lab Results - Last 24 Hours (Table) 03/02/23 03/02/23 Range/Units 07:05 07:05 PT 13.6 H (10.0-12.5) sec INR 1.3 H (<1.2) APTT 68.3 H (22.0-30.0) sec Venous US: report reviewed Assessment and Plan (1) Left leg DVT Current Visit: Yes Status: Acute Priority: High Code(s): I82.402 - ACUTE EMBOLISM AND THOMBOS UNSP DEEP VEINS OF L LOW EXTREM SNOMED Code(s): 552010521 Plan: LLE DVT: -Significant history of coronary artery disease and nicotine dependence. Patient reports he was started on testosterone replacement approximately 18 months ago and at his last checkup with his cage tender his levels were 1500, last testosterone injection was 2 weeks ago. -Dopplers of bilateral lower extremities revealed DVT of left popliteal vein. Patient was initially started on heparin and then transitioned to Coumadin. However INR was subtherapeutic at 1.3 and Lovenox bridge was started. Per pt, [employer] copay was $1000 a month, which he could not afford -CBC revealed mildly elevated hemoglobin and hematocrit -Plan is for pt to be discharged on coumadin. Will schedule INR checks next week in clinic and f/u with Dr. Aftab Mendez. Will try to obtain [employer] financial assistance for pt and if successful will transition pt off coumadin. Since this would be considered a provoked blood clot, recommendation would be for 3 months of treatment. Pt encouraged to stop testosterone replacement and educated on smoking cessation attests: I have seen and examined patient, performed H&P, developed impression and plan of care. Discussed with dictator. Agree with documentation, dictated as a scribe.
[2023-03-03 13:22] VITALS: PULSE 79; RESP 16; TEMP 97.8
[2023-03-03] MEDS ORDERED: WARFARIN 5 MG TAB PO ONE (18:00)
[2023-03-03] MEDS ORDERED: WARFARIN 1 MG TAB PO ONE (18:00)
--- NOTE | 2023-03-03 21:36 | P.DS ---
Providers Date of admission: 02/27/23 15:21 Attending physician: Unruly Cordova MD Consults: 03/02/23 12:47 Consult Physician Routine Consulting Provider: Aftab Mendez Consult Reason/Comments: dvt Do you want consulting provider notified?: Yes Primary care physician: [facility] [place] Hospital Course: Diagnoses: Acute DVT of thrombosis requiring anticoagulation, thought it is provoked secondary to testosterone use. Patient was counseled to quit using testosterone and follow-up with his physician Left leg pain and swelling and erythema secondary to above, significantly improved History of coronary artery disease Nicotine dependence Hypertension, new onset Hospital course: This is a pleasant 57 years old male with past medical history of coronary artery disease status post stent placement, he is every day smoker. 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 Sotomayor who referred him to this facility emergency room Patient's was started with Coumadin and heparin drip, Coumadin was pharmacy to dose, his INR was therapeutic today at 2.2 however with [place] jumped from 1.3 yesterday and 1.1 the day before. He was getting 10 mg every night the last 2 doses. Therefore because of the rapid increase in his INR there is risk of supratherapeutic coagulopathy INR therefore we are going to prescribe him 1 mg of Coumadin today and tomorrow and then asked him to go and check his INR with his PCP Dr Gr this coming Sunday where appointment was made for him and Dr Gr and the patient are aware with this appointment. Patient was told that his goal INR is 2-3, is aware that INR more than 3 high as high risk of bleeding and to hold Coumadin and talk to his doctor right away and he verbalized understanding and acceptance. His left leg significantly improved today with less erythema warmth tenderness almost close to the normal right leg. Physical therapy prescribe him rolling walker which is provided for him at bedside Hematology consult was obtained who instructed him to stop using testosterone which showed it may provoked his deep venous thrombosis, patient informed about this and he is agreeable. Patient was informed to talk to his Dr Gr and Dr. Romero chorus master regarding alternative. Patient and family at bedside or [place] for him to be discharged today Patient has small bruise in his left lower back remained stable, no hematoma anywhere else and no evidence of bleeding and vitals and hemoglobin stable. Patient was cleared for discharge by hematology service. Patient was cleared for discharge by hematology service Problems and management plan were discussed with the patient and he verbalized understanding and acceptance Patient was found stable and can be discharged home in guarded prognosis however he needs follow-up as an outpatient. Patient was instructed to follow up with PCP Dr Gr within one week and patient agrees with the appointments made for him on this coming Monday 03/05 where he goes to check his INR. I discussed the case with Dr Gr and she kindly took note of this and she is going to check his INR. Patient was informed and his family that he does not need Lovenox injection upon dischargeb(these were prescribed for him yesterday when his INR was subtherapeutic 1.3 however patient was not discharged yesterday and help because there was small bruise in the lower back which is monitored and remained stable today) Patient was instructed to follow up with cashier Dr. Mendez as an outpatient in 1 week and he agrees Patient was instructed to follow up with his chorus master Dr. Romero in 2-3 weeks and he agrees as well Physical exam Gen: patient is a AAOx3, no distress CVS: S1-S2, RRR, no murmur Lungs: B/L CTA, no wheezing Abdomen: soft, no distention, no tenderness, positive bowel sounds -Extremity: no leg edema or induration, Left leg swelling and tenderness and erythema significantly improved Time spent more than 35 minutes Patient Condition at Discharge: Fair Plan - Discharge Summary Discharge Rx Participant: No New Discharge Prescriptions: New HYDROcodone/APAP 5-325MG [[place] 5-325] 1 each PO Q6HR PRN 3 Days #12 tab PRN Reason: Pain Acetaminophen Tab [Tylenol] 650 mg PO Q6HR PRN tab PRN Reason: Mild Pain Or Fever > 100.5 Warfarin [Coumadin] 1 mg PO DAILY #30 tablet Nicotine 7Mg/24Hr Patch [Habitrol] 1 patch TRANSDERM DAILY #5 patch amLODIPine [Norvasc] 5 mg PO DAILY #30 tab Continue Atorvastatin [Lipitor] 40 mg PO HS Aspirin [[place] Aspirin EC] 81 mg PO DAILY Discharge Medication List Aspirin [[place] Aspirin EC] 81 mg PO DAILY 02/27/23 [History] Atorvastatin [Lipitor] 40 mg PO HS 02/27/23 [History] Acetaminophen Tab [Tylenol] 650 mg PO Q6HR PRN tab 03/02/23 [Rx] HYDROcodone/APAP 5-325MG [[place] 5-325] 1 each PO Q6HR PRN 3 Days #12 tab 03/02/23 [Rx] Nicotine 7Mg/24Hr Patch [Habitrol] 1 patch TRANSDERM DAILY #5 patch 03/02/23 [Rx] Warfarin [Coumadin] 1 mg PO DAILY #30 tablet 03/02/23 [Rx] amLODIPine [Norvasc] 5 mg PO DAILY #30 tab 03/02/23 [Rx] Follow up Appointment(s)/Referral(s): Aftab Mendez MD [STAFF PHYSICIAN] - 1 Week (please call office to schedule your appointment.) Lotus Gr [Primary Care Provider] - 03/05/23 10:45 am (follow-up and recheck INR) Patient Instructions/Handouts: Warfarin (By mouth), Enoxaparin (By injection), Deep Vein Thrombosis (DC), Vitamin K in Foods (DC) Activity/Diet/Wound Care/Special Instructions: Heart healthy diet Activity is restricted until you see your doctor We recommend to hold her testosterone and talked to her primary care doctor, chorus master and cashier about it Stop Lovenox injection. Continue with Coumadin 1 mg by mouth daily until you talk to your primary care doctor Your goal INR is 2.0-3.0 Discharge Disposition: HOME SELF-CARE
== END 2023-03-03 15:51 | disposition home or self-care (01) | DRG 301 ==
LOC: EC 14:28 → 4SSUR 15:21 → 5NMEDONC 16:24
PROVIDERS: ADMIT Internal Medicine; ATTEND Internal Medicine
DX: I82.432 Acute embolism and thrombosis of left popliteal vein (principal); T38.7X5A Adverse effect of androgens and anabolic congeners, initial encounter; I25.10 Atherosclerotic heart disease of native coronary artery without angina pectoris; I10 Essential (primary) hypertension; F17.210 Nicotine dependence, cigarettes, uncomplicated; Z71.6 Tobacco abuse counseling; I25.2 Old myocardial infarction; Z79.82 Long term (current) use of aspirin; Z79.899 Other long term (current) drug therapy; Z95.5 Presence of coronary angioplasty implant and graft
CPT/HCPCS: 36415; 80053; 85025; 85027; 85610; 85730; 93970; 96365; 99285

== ENCOUNTER → 2023-03-10 | Outpatient (CLI) | payer BC ==
[2023-03-10 11:48] LABS: Prothrombin Time 10.7 sec (10.0-12.5)
== END | disposition home or self-care (01) ==
LOC: LABWHC1 10:51
PROVIDERS: ATTEND Internal Medicine
DX: I80.10 Phlebitis and thrombophlebitis of unspecified femoral vein (principal)
CPT/HCPCS: 36415; 85610

== ENCOUNTER → 2023-05-31 | Outpatient (CLI) | payer BC ==
--- NOTE | 2023-05-31 14:42 | US ---
EXAMINATION TYPE: US venous doppler duplex LE LT DATE OF EXAM: 05/31/2023 2:24 PM COMPARISON: US CLINICAL INDICATION: Male, 58 years old with history of I80.10 PHLEBITIS AND THROMBOPHLEBITIS; F/U DV T of left leg, pt currently on blood thinners SIDE PERFORMED: Left TECHNIQUE: The lower extremity deep venous system is examined utilizing real time linear array sonog armando with graded compression, doppler sonography and color-flow sonography. VESSELS IMAGED: Common Femoral Vein Deep Femoral Vein Greater Saphenous Vein * Femoral Vein Popliteal Vein Small Saphenous Vein * Proximal Calf Veins Posterior tibial veins (* superficial vessels) Left Leg: Negative for acute DVT. There is probable chronic non-occluding thrombus within popliteal vein most noticeable within proximal portion. Overall improvement from prior DVT IMPRESSION: Interval improvement now with chronic, nonocclusive DVT particularly in the upper portion of the popl iteal vein. No occlusive, acute DVT is seen of the left lower extremity.
== END | disposition home or self-care (01) ==
LOC: RADUSWWP 13:51
PROVIDERS: ATTEND Internal Medicine
DX: I82.539 Chronic embolism and thrombosis of unspecified popliteal vein (principal); E78.5 Hyperlipidemia, unspecified; Z71.3 Dietary counseling and surveillance; Z79.01 Long term (current) use of anticoagulants

== ENCOUNTER → 2023-06-22 | Outpatient (CLI) | payer BC ==
[2023-06-22 18:27] LABS: HCT 39.3 % (39.6-50.0); HGB 13.5 g/dL (13.0-17.0); MCH 30.7 pg (27.0-32.0); MCHC 34.4 g/dL (32.0-37.0); MCV 89.3 FL (80.0-97.0); Mean Platelet Volume 10.8 FL (9.5-12.2); NRBC Per 100 WBC 0 X 10*3/uL (0.00-0.01); Platelet Count 173 X 10*3/uL (140-440); RDW 13.1 % (11.5-14.5); WBC 7.91 X 10*3/uL (4.50-10.00)
[2023-06-22 18:57] LABS: Prostate Specific Antigen 0.24 ng/mL (0.000-4.500); Testosterone 34.2 ng/dL (86.98-780.10)
== END | disposition home or self-care (01) ==
LOC: LABWHC1 12:28
PROVIDERS: ATTEND Internal Medicine Endocrinology, Diabetes & Metabolism
DX: E29.1 Testicular hypofunction (principal)
CPT/HCPCS: 36415; 84153; 84403; 85027

== ENCOUNTER → 2023-10-31 | Outpatient (CLI) | payer BC ==
[2023-10-31 19:14] LABS: HCT 43.9 % (39.6-50.0); HGB 14.9 g/dL (13.0-17.0); MCHC 33.9 g/dL (32.0-37.0); MCV 85.4 FL (80.0-97.0); Mean Platelet Volume 10.6 FL (9.5-12.2); NRBC Per 100 WBC 0 X 10*3/uL (0.00-0.01); Platelet Count 187 X 10*3/uL (140-440); RBC 5.14 X 10*6/uL (4.40-5.60); RDW 13.3 % (11.5-14.5); WBC 9.85 X 10*3/uL (4.50-10.00)
[2023-10-31 20:07] LABS: Prostate Specific Antigen 0.67 ng/mL (0.000-4.500)
== END | disposition home or self-care (01) ==
LOC: LABWHC1 14:29
PROVIDERS: ATTEND Internal Medicine Endocrinology, Diabetes & Metabolism
DX: E29.1 Testicular hypofunction (principal)
CPT/HCPCS: 36415; 84153; 84403; 85027

== ENCOUNTER → 2024-02-25 | Outpatient (CLI) | payer BC ==
[2024-02-25 15:38] LABS: HCT 46.4 % (39.6-50.0); HGB 15.6 g/dL (13.0-17.0); MCH 28.7 pg (27.0-32.0); MCHC 33.6 g/dL (32.0-37.0); MCV 85.3 FL (80.0-97.0); Mean Platelet Volume 10.5 FL (9.5-12.2); NRBC Per 100 WBC 0 X 10*3/uL (0.00-0.01); Platelet Count 192 X 10*3/uL (140-440); RBC 5.44 X 10*6/uL (4.40-5.60); RDW 13.7 % (11.5-14.5); WBC 8.06 X 10*3/uL (4.50-10.00)
[2024-02-25 15:49] LABS: PSA Annual Screen 0.815 ng/mL (0.000-4.000)
== END | disposition home or self-care (01) ==
LOC: LABWHC1 11:47
PROVIDERS: ATTEND Internal Medicine Endocrinology, Diabetes & Metabolism
DX: Z12.5 Encounter for screening for malignant neoplasm of prostate (principal); E29.1 Testicular hypofunction
CPT/HCPCS: 85027; 84403; 36415; G0103

== ENCOUNTER → 2024-04-23 | Outpatient (CLI) | payer BC ==
[2024-04-23 19:53] LABS: ALT 28 U/L (10-49); AST 21 U/L (14-35); Chol/HDL Ratio 3.67 Ratio; LDL Cholesterol,Calculated 89.5 mg/dL (0.0-131.0); VLDL Calculation 16.72 mg/dL (5.00-40.00)
== END | disposition home or self-care (01) ==
LOC: LABWHC1 13:51
PROVIDERS: ATTEND Internal Medicine Cardiovascular Disease
DX: E78.2 Mixed hyperlipidemia (principal)
CPT/HCPCS: 36415; 80061; 84450; 84460

== ENCOUNTER → 2024-09-19 | Outpatient (CLI) | payer BC ==
[2024-09-20 02:49] LABS: HCT 46.1 % (39.6-50.0); HGB 14.7 g/dL (13.0-17.0); MCH 27.9 pg (27.0-32.0); MCHC 31.9 g/dL (32.0-37.0); MCV 87.5 FL (80.0-97.0); Mean Platelet Volume 10.7 FL (9.5-12.2); NRBC Per 100 WBC 0 X 10*3/uL (0.00-0.01); Platelet Count 208 X 10*3/uL (140-440); RBC 5.27 X 10*6/uL (4.40-5.60); RDW 13.5 % (11.5-14.5)
[2024-09-20 02:56] LABS: Prostate Specific Antigen 0.87 ng/mL (0.000-4.500)
== END | disposition home or self-care (01) ==
LOC: LABWHC1 16:01
PROVIDERS: ATTEND Internal Medicine Endocrinology, Diabetes & Metabolism
DX: E29.1 Testicular hypofunction (principal)
CPT/HCPCS: 36415; 84153; 84403; 85027

== ENCOUNTER → 2024-10-25 | Outpatient (CLI) | payer BC ==
[2024-10-25 13:42] LABS: ALT 42 U/L (10-49); AST 30 U/L (14-35); Cholesterol 102.00 mg/dL (0.00-200.00); HDL Cholesterol 31.50 mg/dL (40.00-60.00); LDL Cholesterol,Calculated 52.9 mg/dL (0.0-131.0); Triglycerides 88.10 mg/dL (0.00-149.00); VLDL Calculation 17.62 mg/dL (5.00-40.00)
== END | disposition home or self-care (01) ==
LOC: LABWHC1 08:27
PROVIDERS: ATTEND Internal Medicine Cardiovascular Disease
DX: E78.2 Mixed hyperlipidemia (principal)
CPT/HCPCS: 36415; 80061; 84450; 84460